=== PATIENT | female | born 1950 | race Asian ===

== ENCOUNTER 2018-05-26 08:24 | Inpatient (IN) | payer MEDICAID, OTHER ==
[~2018-05-26] VITALS: Ht 157.5 cm; Wt 63.5 kg
[2018-05-26] MEDS ORDERED: ASPirin 81 mg TAB PO ONE (08:45)
[2018-05-26 10:44] LABS: Basophils # (auto) 0.1 uL; Basophils % (auto) 0.9 % (0.0-2.0); Eosinophils # (auto) 0.1 uL; Eosinophils % (auto) 1.3 % (0.0-7.0); Hemoglobin 13.8 g/dL (12.2-16.2); Lymphocytes # (auto) 2.2 uL; Lymphocytes % (auto) 30.7 % (10.0-50.0); Mean Corpuscular Hemoglobin 28.4 pg (28.0-32.0); Mean Corpuscular Hgb Conc. 32.9 g/dL (32.0-36.0); Mean Corpuscular Volume 86.4 fL (80.0-100.0); Monocytes # (auto) 0.6 uL; Monocytes % (auto) 8.1 % (0.0-12.0); Neutrophils # (auto) 4.3 uL; Platelet Count (auto) 285 10^3/uL (140-450); Red Blood Cells 4.86 10^6/uL (4.0-5.20); Red Cell Distribution Width 13.9 % (11.8-14.3); White Blood Cell 7.3 10^3/uL (4.4-10.8)
[2018-05-26 10:45] VITALS: BP 145/83
[2018-05-26 10:59] LABS: INR 0.92 (0.9-1.15); Partial Thromboplastin Time 26.5 sec (23.78-33.04); Prothrombin Time 9.9 sec (9.27-12.13)
[2018-05-26 11:06] LABS: Alanine Aminotransferase 24 U/L (13-56); Albumin 3.8 g/dL (3.4-5.0); Alkaline Phosphatase 83 U/L (45-117); Anion Gap 5 (5-15); Aspartate Aminotransferase 19 U/L (15-37); BUN/Creatinine Ratio 20.8; Bilirubin, Total 0.4 mg/dL (0.2-1.0); Blood Urea Nitrogen 16 mg/dL (7-18); Calcium 8.7 mg/dL (8.5-10.1); Carbon Dioxide 29 mmol/L (21-32); Chloride 105 mmol/L (98-107); GFR African American 96 mL/min; GFR Non-African American 79 mL/min; Glucose 94 mg/dL (74-106); Potassium 4.4 mmol/L (3.5-5.1); Sodium 139 mmol/L (136-145); Total Protein 7.8 g/dL (6.4-8.2)
[2018-05-26 11:45] VITALS: BP 145/63
[2018-05-26 13:10] LABS: Cholesterol 191 mg/dL (< 200); HDL Cholesterol 73 mg/dL (40-59); LDL Cholesterol 104 mg/dL (< 100); Triglycerides 93 mg/dL (< 150)
[2018-05-26] MEDS ORDERED: ASPI81TA27 PO (13:46)
[2018-05-26] MEDS ORDERED: ATO40T PO (13:46)
[2018-05-26 16:50] VITALS: BP 120/61
[2018-05-26] MEDS ORDERED: ATORVASTATIN 20 MG TAB PO SCH (22:00)
[2018-05-27] MEDS ORDERED: ASPirin 81 mg TAB PO SCH (10:00)
== END 2018-05-26 18:15 | disposition home or self-care (01) | DRG 203 ==
LOC: ER 08:24 → TELE 08:25 → TELE-WESTW 10:43
PROVIDERS: ADMIT Internal Medicine; ATTEND Internal Medicine
DX: R07.9 Chest pain, unspecified (principal); I10 Essential (primary) hypertension; E05.90 Thyrotoxicosis, unspecified without thyrotoxic crisis or storm; I49.1 Atrial premature depolarization; E07.9 Disorder of thyroid, unspecified; E78.5 Hyperlipidemia, unspecified; F41.9 Anxiety disorder, unspecified; I35.1 Nonrheumatic aortic (valve) insufficiency; Z79.899 Other long term (current) drug therapy
CPT/HCPCS: 36415; 71045; 80053; 80061; 83880; 84443; 84484; 85025; 85379; 85610; 85730; 93005; 93017; 93306